=== PATIENT | male | born 1990 | race Hispanic/Latino ===

== ENCOUNTER 2021-12-06 12:50 | Emergency (ER) | payer SELFPAY ==
--- NOTE | 2021-12-06 16:17 | Emergency Department Report ---
ED Male HPI - General Chief complaint: Urogenital-Male Stated complaint: INFECTION Time Seen by Provider: 12/06/21 15:53 Source: patient Mode of arrival: Ambulatory Limitations: No Limitations - History of Present Illness Initial comments: 31 yo male with no pmh presents to the ED for the evaluation of pain and lesions to his penis. He states that his girlfriend has a history of herpes. He also c/o jock itch that has been recurrent for the past almost year despite use of otc creams. He denies fever, n/v, abdominal pain, and penile discharge. MD Complaint: other (sores to penis) -: Gradual, days(s) (4-5) Location: penis Radiation: none Severity scale (0 -10): 5 Quality: burning Consistency: constant Worsens with: palpation denies: discharge, swelling - Related Data Sexually active: Yes Previous Rx's Medication Instructions Recorded Last Taken Type Terbinafine HCl [LamiSIL] 250 mg PO DAILY 14 Days #14 tab 12/06/21 Unknown Rx Valacyclovir HCl [Valtrex] 1,000 mg PO BID 10 Days #20 tab 12/06/21 Unknown Rx Allergies Allergy/AdvReac Type Severity Reaction Status Date / Time No Known Allergies Allergy Verified 12/06/21 15:38 ED Review of Systems ROS: Stated complaint: INFECTION Other details as noted in HPI Comment: All other systems reviewed and negative Constitutional: denies: chills, fever Respiratory: denies: shortness of breath, SOB with exertion, SOB at rest Cardiovascular: denies: chest pain, palpitations, dyspnea on exertion Gastrointestinal: denies: abdominal pain, nausea, vomiting, diarrhea, hematemesis, melena, hematochezia Genitourinary: denies: urgency, dysuria, frequency, hematuria, discharge, testicular pain Neurological: denies: headache, weakness ED Past Medical Hx - Past Medical History Previous Medical History?: No - Medications Home Medications: Home Medications Medication Instructions Recorded Confirmed Last Taken Type Terbinafine HCl [LamiSIL] 250 mg PO DAILY 14 Days #14 tab 12/06/21 Unknown Rx Valacyclovir HCl [Valtrex] 1,000 mg PO BID 10 Days #20 tab 12/06/21 Unknown Rx ED Physical Exam - General Limitations: No Limitations General appearance: alert, in no apparent distress - Head Head exam: Present: atraumatic, normocephalic - Eye Eye exam: Present: normal appearance. Absent: conjunctival injection - Neck Neck exam: Present: normal inspection, full ROM. Absent: tenderness, lymphadenopathy - Respiratory Respiratory exam: Absent: respiratory distress - Cardiovascular Cardiovascular Exam: Present: bradycardia - GI/Abdominal GI/Abdominal exam: Present: soft. Absent: distended, tenderness - exam: Absent: testicular tenderness, urethral discharge, scrotal swelling External exam: Present: normal external exam (noted to have open lesions to base and shaft of penis, also noted to have erythema to creases of groin compatible with jock itch. ), erythema, lesions - Extremities Exam Extremities exam: Present: normal inspection - Back Exam Back exam: Present: normal inspection - Neurological Exam Neurological exam: Present: alert, oriented X3 - Psychiatric Psychiatric exam: Present: normal affect, normal mood - Skin Skin exam: Present: warm, dry, intact, normal color ED Course Vital Signs 12/06/21 12/06/21 15:37 17:52 Temperature 97.5 F L 97.2 F L Pulse Rate 58 L 61 Respiratory 16 16 Rate Blood Pressure 130/67 Blood Pressure 134/78 [Left] O2 Sat by Pulse 98 97 Oximetry ED Medical Decision Making - Medical Decision Making 31 yo male with no pmh presents to the ED for the evaluation of pain and lesions to his penis. He states that his girlfriend has a history of herpes. He also c/o jock itch that has been recurrent for the past almost year despite use of otc creams. He denies fever, n/v, abdominal pain, and penile discharge. Exam compatible with herpes and tinea cruris. Patient will be treated with 10 day coarse of Valtrex along with oral terbinafine 250mg po daily for 14 days given the fact that he has not had any improvement after persistent use of topical treatments. He was advised to take mediations as prescribed and follow up with pcp if no improvement or worsening symptoms. Critical care attestation.: If time is entered above; I have spent that time in minutes in the direct care of this critically ill patient, excluding procedure time. ED Disposition Clinical Impression: Tinea cruris Herpes genitalia Qualifiers: Herpes simplex infection site: penis Qualified Code(s): A60.01 - Herpesviral infection of penis Disposition: HOME / SELF CARE / HOMELESS Is pt being admited?: No Does the pt Need Aspirin: No Condition: Stable Instructions: Jock Itch, [id number], Genital Herpes Additional Instructions: Take medication as prescribed. Follow-up with primary care provider if no improvement or worsening symptoms. Return to the emergency department as needed. Prescriptions: Terbinafine HCl [LamiSIL] 250 mg PO DAILY 14 Days #14 tab Valacyclovir HCl [Valtrex] 1,000 mg PO BID 10 Days #20 tab Referrals: CALI LANGSTON MD [Primary Care Provider] - 3-5 Days Forms: Work/School Release Form(ED) Time of Disposition: 16:17
[2021-12-06 17:54] VITALS: BP 134/78
== END 2021-12-06 17:51 | disposition home or self-care (01) ==
LOC: ED 12:50
DX: B35.6 Tinea cruris (principal); A60.00 Herpesviral infection of urogenital system, unspecified
CPT/HCPCS: 99282